=== PATIENT | male | born 1970 | race Caucasian/White ===

== ENCOUNTER 2017-02-16 10:48 | Inpatient (IN) | payer OTHER ==
[~2017-02-16] VITALS: Ht 177.8 cm; Wt 104.9 kg
[2017-02-16 11:27] LABS: HEMOGLOBIN 16.4 gm/dl (14.0-17.5); RED BLOOD COUNT 4.93 M/UL (4.20-5.50); WHITE BLOOD COUNT 10.7 K/UL (4.5-11.0)
[2017-02-16 11:54] LABS: BUN/CREATININE RATIO 12 (0-10)
[2017-02-18 19:17] LABS: BUN/CREATININE RATIO 13 (0-10)
[2017-02-20 04:06] LABS: RED BLOOD COUNT 4.52 M/UL (4.20-5.50); WHITE BLOOD COUNT 15.3 K/UL (4.5-11.0)
[2017-02-20 04:30] LABS: BUN/CREATININE RATIO 14 (0-10)
[2017-02-21] MEDS ORDERED: LOPRESSOR 25 MG25 MG PO (16:43)
[2017-02-21] MEDS ORDERED: HABITROL 21 MG P1 EA TD (16:45)
[2017-02-21] MEDS ORDERED: ADVAIR 250-501 EACH INH (16:46)
[2017-02-21] MEDS ORDERED: PROVENTIL HFA 61 INH INH (16:48)
[2017-02-21] MEDS ORDERED: PREDNISONE 10 M10 MG PO (16:53)
== END 2017-02-21 18:04 | disposition home or self-care (01) | DRG 189 ==
LOC: ER1 10:48 → ZEROF 14:27 → PROG CARE 14:27
PROVIDERS: Emergency Medicine; ADMIT Internal Medicine
DX: J96.01 Acute respiratory failure with hypoxia (principal); N17.9 Acute kidney failure, unspecified; J44.1 Chronic obstructive pulmonary disease with (acute) exacerbation; F17.210 Nicotine dependence, cigarettes, uncomplicated; K21.9 Gastro-esophageal reflux disease without esophagitis; F41.0 Panic disorder [episodic paroxysmal anxiety]; R00.8 Other abnormalities of heart beat; F19.10 Other psychoactive substance abuse, uncomplicated; R00.0 Tachycardia, unspecified; Z84.89 Family history of other specified conditions; Z82.49 Family history of ischemic heart disease and other diseases of the circulatory system; Z83.3 Family history of diabetes mellitus; Z79.899 Other long term (current) drug therapy; Z91.19 Patient's noncompliance with other medical treatment and regimen
CPT/HCPCS: ECHO; 36415; 36600; 71010; 80048; 80053; 80307; 82550; 82553; 82803; 82962; 83690; 83735; 84439; 84443; 84484; 85025; 85379; 85610; 85730; 87070; 87205; 93005; 93306; 94640; 94664; 96365; 96366; 96367; 96372; 96375; 96376; 99285; G0480; J0456; J0696; J1650; J2920; J2930; J7030; J7050; Q2039